=== PATIENT | male | born 1950 | race Caucasian/White ===

== ENCOUNTER → 2017-09-25 | Outpatient (REF) ==
[2017-09-25 09:39] LABS: PSA-TOTAL 2.48 ng/mL (0-4); THYROID STIMULATING HORMONE 1.41 uIU/mL (0.465-4.680)
== END ==
LOC: ZLAB.WCH 08:57
PROVIDERS: Internal Medicine
DX: Z01.89 Encounter for other specified special examinations (principal)
CPT/HCPCS: G0103